=== PATIENT | male | born 1930 | race Caucasian/White ===

== ENCOUNTER 2017-06-30 10:02 | Inpatient (IN) | payer OTHER ==
[~2017-06-30] VITALS: Ht 180.3 cm; Wt 91.3 kg
[~2017-06-30 10:02] MED LIST: AMLODIPINE BESYL5 MG PO; CATAPRES0.3 MG PO; DOXAZOSIN MESYLA8 MG PO; FINASTERIDE5 M1 PO; FINASTERIDE5 MG PO; HYDROCHLOROTHIA25 MG PO; LIPITOR40 MG PO; LO-DOSE ASPIRIN81 M1 PO; LOSARTAN POTASS50 MG PO; LOTREL 5/201 CAPSULE PO; METFORMIN HCL1000 MG PO; NEURONTIN300 MG PO; NOVOLOG100 UNIT/2 SQ; SENOKOT,SENN1 TABLET PO
[2017-06-30 10:34] LABS: HEMATOCRIT 36.1 % (38.0-50.0); HEMOGLOBIN 12.8 G/DL (12.5-16.6); MCH 32.9 PG (29.0-34.0); MCHC 35.5 G/DL (30.0-36.0); MCV 92.8 FL (86-99); PLATELET COUNT 208 K/uL (156-360); RBC DIS.WIDTH-CV 12.8 % (11.8-14.6); RBC DIS.WIDTH-SD 43.8 % (39-53); RED BLOOD COUNT 3.89 M/uL (4.00-5.50); WHITE BLOOD COUNT 9.2 K/uL (4.1-10.2)
[2017-06-30 10:45] LABS: CHLORIDE 98 mEq/L (99-109); POTASSIUM 4.7 mEq/L (3.7-5.4); SODIUM 131 mEq/L (136-147)
[2017-06-30 10:47] LABS: GLUCOSE 289 mg/dL (70-99)
[2017-06-30 10:51] LABS: CREATININE 1.2 mg/dL (0.6-1.3); GFR ESTIMATE (CALCULATED) > 59 mL/min/ (58.99-99999)
[2017-06-30 10:52] LABS: UREA NITROGEN (BUN) 14 mg/dL (9-23)
[2017-06-30 10:55] LABS: TROP-I INTERPRETATION NEGATIVE; TROPONIN-I 0.05 ng/mL (0.0-0.30)
[2017-06-30] MEDS ORDERED: K-DUR20 MEQ PO (13:14)
[2017-06-30] MEDS ORDERED: KETOCONAZOLE60 GM TP (13:14)
[2017-06-30] MEDS ORDERED: GABAPENTIN300 MG PO (13:14)
[2017-06-30 15:11] VITALS: BP 143/67
[2017-06-30 15:18] LABS: TROP-I INTERPRETATION POSITIVE
[2017-06-30 15:52] LABS: INTER. NORMALIZED RATIO 1.1
[2017-06-30 18:15] VITALS: BP 137/62
[2017-06-30 21:11] LABS: TROP-I INTERPRETATION POSITIVE; TROPONIN-I 25.07 ng/mL (0.0-0.30)
[2017-06-30 23:16] VITALS: BP 107/55
[2017-07-01] VITALS (8 sets, daily range): BP systolic 81–135; BP diastolic 45–88
[2017-07-01 05:01] LABS: HEMATOCRIT 32.1 % (38.0-50.0); HEMOGLOBIN 11.3 G/DL (12.5-16.6); MCH 32.6 PG (29.0-34.0); MCHC 35.2 G/DL (30.0-36.0); MCV 92.5 FL (86-99); PLATELET COUNT 179 K/uL (156-360); RBC DIS.WIDTH-SD 43.9 % (39-53); RED BLOOD COUNT 3.47 M/uL (4.00-5.50)
[2017-07-01 05:24] LABS: CHLORIDE 102 mEq/L (99-109); POTASSIUM 5.3 mEq/L (3.7-5.4); SODIUM 134 mEq/L (136-147)
[2017-07-01 05:25] LABS: TROP-I INTERPRETATION POSITIVE
[2017-07-01 05:27] LABS: ALBUMIN 3.8 g/dL (3.2-4.8)
[2017-07-01 05:35] LABS: AST (GOT) 214 IU/L (2-34)
[2017-07-01 05:36] LABS: ALT (GPT) 34 IU/L (3-49)
[2017-07-01 05:44] LABS: TROPONIN-I 74.44 ng/mL (0.0-0.30)
[2017-07-01 05:46] LABS: ALKALINE PHOSPHATASE 109 IU/L (3-129); CREATININE 1.2 mg/dL (0.6-1.3); GFR ESTIMATE (CALCULATED) > 59 mL/min/ (58.99-99999); GLUCOSE 199 mg/dL (70-99); TOTAL BILIRUBIN 1.5 mg/dL (0.0-1.0); TOTAL PROTEIN 5.9 g/dL (6.4-8.3); UREA NITROGEN (BUN) 19 mg/dL (9-23)
[2017-07-01 09:11] LABS: HEMOGLOBIN A1c (GLYCOHEMOGLOB) 7.1 % (Below 5.7)
[2017-07-01 09:31] LABS: HDL CHOLESTEROL 52 MG/DL (Desirable>=40); LDL CHOLESTEROL 64 mg/dL (Desirable<100); NON-HDL CHOLESTEROL 75 mg/dL (Desirable<160); TOTAL CHOLESTEROL 127 mg/dL (Desirable<200); TRIGLYCERIDES 55 MG/DL (Normal: <150)
== END 2017-07-01 13:23 | disposition short-term general hospital (02) | DRG 270 ==
LOC: EME 10:02 → EDOF 13:41 → ENRESERV 13:42 → EDOF 14:04 → 5WEST 14:38 → 4WEST 15:30 → 5WEST 16:34 → ENRESERV 16:39 → CANRESERV 07-01 02:40 → 4WEST 07-01 07:23 → ENRESERV 07-01 07:23 → 4WEST 07-01 07:35
PROVIDERS: Internal Medicine; Nurse Practitioner Adult Health
DX: I21.4 Non-ST elevation (NSTEMI) myocardial infarction (principal); I50.21 Acute systolic (congestive) heart failure; E87.1 Hypo-osmolality and hyponatremia; I25.119 Atherosclerotic heart disease of native coronary artery with unspecified angina pectoris; E11.40 Type 2 diabetes mellitus with diabetic neuropathy, unspecified; E78.5 Hyperlipidemia, unspecified; I11.0 Hypertensive heart disease with heart failure; I44.0 Atrioventricular block, first degree; N40.0 Benign prostatic hyperplasia without lower urinary tract symptoms; Z87.891 Personal history of nicotine dependence; Z79.82 Long term (current) use of aspirin; Z79.84 Long term (current) use of oral hypoglycemic drugs; Z82.49 Family history of ischemic heart disease and other diseases of the circulatory system
CPT/HCPCS: 71046; 80048; 80053; 80061; 82948; 83036; 84484; 85027; 85347; 85610; 85730; 86850; 86900; 86901; 87641; 93005; 99281; 99285; C1725; C1769; C1887; C1894; J0461; J1644; J1815; J2250; J2405; J3010; J3246

== ENCOUNTER 2017-07-11 18:54 | Inpatient (IN) | payer OTHER ==
[~2017-07-11] VITALS: Ht 180.3 cm; Wt 87.9 kg
[~2017-07-11 18:54] MED LIST changes: +GABAPENTIN300 MG PO; +K-DUR20 MEQ PO; +KETOCONAZOLE60 GM TP
[2017-07-11 19:24] LABS: HEMATOCRIT 29.5 % (38.0-50.0); HEMOGLOBIN 10.1 G/DL (12.5-16.6); MCH 32.2 PG (29.0-34.0); MCHC 34.2 G/DL (30.0-36.0); MCV 93.9 FL (86-99); RBC DIS.WIDTH-CV 12.8 % (11.8-14.6); RBC DIS.WIDTH-SD 43.8 % (39-53); RED BLOOD COUNT 3.14 M/uL (4.00-5.50); WHITE BLOOD COUNT 13.9 K/uL (4.1-10.2)
[2017-07-11 19:26] LABS: PLATELET COUNT 307 K/uL (156-360)
[2017-07-11 19:44] LABS: CHLORIDE 96 mEq/L (99-109); POTASSIUM 5.8 mEq/L (3.7-5.4); SODIUM 127 mEq/L (136-147)
[2017-07-11 19:45] LABS: GLUCOSE 357 mg/dL (70-99); TROP-I INTERPRETATION POSITIVE
[2017-07-11 19:49] LABS: CREATININE 1.9 mg/dL (0.6-1.3); GFR ESTIMATE (CALCULATED) 36 mL/min/ (58.99-99999)
[2017-07-11 19:50] LABS: UREA NITROGEN (BUN) 41 mg/dL (9-23)
[2017-07-11 19:57] LABS: TROPONIN-I 0.68 ng/mL (0.0-0.30)
[2017-07-11] MEDS ORDERED: FUROSEMIDE80 MG PO (23:02)
[2017-07-11] MEDS ORDERED: ELIQUIS5 MG PO (23:32)
[2017-07-12 01:50] LABS: POTASSIUM 5.6 mEq/L (3.7-5.4)
[2017-07-12 02:02] LABS: TROP-I INTERPRETATION POSITIVE
[2017-07-12 02:03] LABS: TROPONIN-I 0.64 ng/mL (0.0-0.30)
[2017-07-12 03:10] VITALS: BP 148/68
[2017-07-12 05:53] LABS: HEMATOCRIT 26.4 % (38.0-50.0); HEMOGLOBIN 8.8 G/DL (12.5-16.6); MCH 31.1 PG (29.0-34.0); MCHC 33.3 G/DL (30.0-36.0); MCV 93.3 FL (86-99); PLATELET COUNT 276 K/uL (156-360); RBC DIS.WIDTH-CV 12.7 % (11.8-14.6); RBC DIS.WIDTH-SD 43.5 % (39-53); RED BLOOD COUNT 2.83 M/uL (4.00-5.50); WHITE BLOOD COUNT 12.4 K/uL (4.1-10.2)
[2017-07-12 06:11] LABS: CHLORIDE 96 MEQ/L (99-109); CREATININE 1.8 MG/DL (0.6-1.3); GFR ESTIMATE (CALCULATED) 38 mL/min/ (58.99-99999); GLUCOSE 222 mg/dL (70-99); POTASSIUM 5.4 MEQ/L (3.7-5.4); SODIUM 129 MEQ/L (136-147); UREA NITROGEN (BUN) 39 mg/dL (9-23)
[2017-07-12 07:48] VITALS: BP 121/58
[2017-07-12 09:02] LABS: TROP-I INTERPRETATION INDETERMINATE; TROPONIN-I 0.59 ng/mL (0.0-0.30)
[2017-07-12 11:19] VITALS: BP 121/57
[2017-07-12 16:42] LABS: APPEARANCE CLOUDY ((CLEAR)); BILIRUBIN NEGATIVE; BLOOD MODERATE; COLOR YELLOW ((YELLOW)); GLUCOSE (STRIP) NEGATIVE; KETONES NEGATIVE; LEUKOCYTES LARGE; NITRITE POSITIVE; PROTEIN (STRIP) 30; SPECIFIC GRAVITY 1.011 (1.000-1.030); UROBILINOGEN 0.2 MG/DL (0.2-1.0)
[2017-07-12 16:59] LABS: BACTERIA RARE /HPF; EPITHELIAL CELLS NONE SEEN /HPF; HYALINE CASTS 0-5 /LPF; MUCUS NONE SEEN /LPF; WHITE BLOOD CELLS TNTC /HPF (0-5)
[2017-07-12 17:49] VITALS: BP 161/77
[2017-07-12 21:00] VITALS: BP 125/69
[2017-07-13 03:00] VITALS: BP 124/66
[2017-07-13 06:13] LABS: BASOPHIL (%) 0.2 % (0-1); EOSINOPHIL (%) 0.8 % (0-5); EOSINOPHIL COUNT 0.1 K/uL (0-0.3); HEMATOCRIT 25.1 % (38.0-50.0); HEMOGLOBIN 8.6 G/DL (12.5-16.6); IMMATURE GRANULOCYTE (%) 0.6 % (0.0-0.7); LYMPHOCYTE (%) 12.5 % (15-42); LYMPHOCYTE COUNT 1.2 K/uL (1.0-2.8); MCH 31.5 PG (29.0-34.0); MCHC 34.3 G/DL (30.0-36.0); MCV 91.9 FL (86-99); MONOCYTE (%) 12.2 % (3-12); MONOCYTE COUNT 1.2 K/uL (0-0.8); NEUTROPHIL (%) 73.7 % (45-76); NEUTROPHIL COUNT 7.3 K/uL (1.8-6.4); PLATELET COUNT 286 K/uL (156-360); RBC DIS.WIDTH-CV 12.8 % (11.8-14.6); RBC DIS.WIDTH-SD 42.7 % (39-53); RED BLOOD COUNT 2.73 M/uL (4.00-5.50); WHITE BLOOD COUNT 9.9 K/uL (4.1-10.2)
[2017-07-13 06:36] LABS: CHLORIDE 94 MEQ/L (99-109); CREATININE 1.5 MG/DL (0.6-1.3); GFR ESTIMATE (CALCULATED) 47 mL/min/ (58.99-99999); GLUCOSE 170 mg/dL (70-99); MAGNESIUM 1.6 mg/dl (1.3-2.7); SODIUM 130 MEQ/L (136-147); UREA NITROGEN (BUN) 39 mg/dL (9-23)
[2017-07-13 06:38] LABS: TROP-I INTERPRETATION INDETERMINATE; TROPONIN-I 0.48 ng/mL (0.0-0.30)
[2017-07-13 06:38] LABS: POTASSIUM 4.2 MEQ/L (3.7-5.4)
[2017-07-13 07:38] VITALS: BP 123/62
[2017-07-13 12:30] VITALS: BP 109/60
[2017-07-13 17:48] VITALS: BP 119/69
[2017-07-13 19:32] VITALS: BP 122/58
[2017-07-13 23:51] VITALS: BP 113/57
[2017-07-14 03:30] VITALS: BP 119/65
[2017-07-14 05:28] LABS: BASOPHIL (%) 0.3 % (0-1); EOSINOPHIL (%) 1.3 % (0-5); EOSINOPHIL COUNT 0.1 K/uL (0-0.3); HEMATOCRIT 25.6 % (38.0-50.0); HEMOGLOBIN 8.7 G/DL (12.5-16.6); IMMATURE GRANULOCYTE (%) 0.4 % (0.0-0.7); LYMPHOCYTE (%) 17.8 % (15-42); LYMPHOCYTE COUNT 1.4 K/uL (1.0-2.8); MCV 91.1 FL (86-99); MONOCYTE (%) 15.1 % (3-12); MONOCYTE COUNT 1.2 K/uL (0-0.8); NEUTROPHIL (%) 65.1 % (45-76); NEUTROPHIL COUNT 5.1 K/uL (1.8-6.4); PLATELET COUNT 304 K/uL (156-360); RBC DIS.WIDTH-CV 12.7 % (11.8-14.6); RBC DIS.WIDTH-SD 42.5 % (39-53); RED BLOOD COUNT 2.81 M/uL (4.00-5.50); WHITE BLOOD COUNT 7.9 K/uL (4.1-10.2)
[2017-07-14 05:51] LABS: ALBUMIN 2.7 G/DL (3.2-4.8); CHLORIDE 96 MEQ/L (99-109); CREATININE 1.4 MG/DL (0.6-1.3); GFR ESTIMATE (CALCULATED) 51 mL/min/ (58.99-99999); GLUCOSE 153 mg/dL (70-99); IRON 20 MCG/DL (35-150); PHOSPHORUS 4.5 mg/dL (2.5-4.9); POTASSIUM 3.8 MEQ/L (3.7-5.4); SODIUM 133 MEQ/L (136-147); TRANSFERRIN (TIBC) 131.8 mg/dL (215-380); TRANSFERRIN SATUR. 15 % (20-55); UREA NITROGEN (BUN) 38 mg/dL (9-23)
[2017-07-14 07:20] VITALS: BP 129/60
[2017-07-14 11:30] VITALS: BP 113/56
[2017-07-14] MEDS ORDERED: AMLODIPINE BESYL5 MG PO (12:32)
[2017-07-14] MEDS ORDERED: LIPITOR40 MG PO (12:32)
[2017-07-14] MEDS ORDERED: ELIQUIS2.5 MG PO (12:32)
[2017-07-14] MEDS ORDERED: APRESOLINE25 MG PO (12:32)
[2017-07-14] MEDS ORDERED: GABAPENTIN300 MG PO (12:32)
[2017-07-14] MEDS ORDERED: LASIX40 MG PO (12:32)
[2017-07-14] MEDS ORDERED: K-DUR20 MEQ PO (12:32)
[2017-07-14] MEDS ORDERED: CIPRO500 MG PO (13:20)
== END 2017-07-14 15:35 | disposition home health service (06) | DRG 291 ==
LOC: EME 18:54 → EDOF 07-12 00:01 → ENRESERV 07-12 00:04 → 4EAST 07-12 03:09
PROVIDERS: Emergency Medicine Emergency Medical Services; Hospitalist; Internal Medicine Cardiovascular Disease; Internal Medicine Nephrology; Student in an Organized Health Care Education/Training Program
DX: I13.0 Hypertensive heart and chronic kidney disease with heart failure and stage 1 through stage 4 chronic kidney disease, or unspecified chronic kidney disease (principal); I50.23 Acute on chronic systolic (congestive) heart failure; N17.9 Acute kidney failure, unspecified; N39.0 Urinary tract infection, site not specified; E87.1 Hypo-osmolality and hyponatremia; N18.3 Chronic kidney disease, stage 3 (moderate); E11.22 Type 2 diabetes mellitus with diabetic chronic kidney disease; E11.65 Type 2 diabetes mellitus with hyperglycemia; E78.5 Hyperlipidemia, unspecified; I25.10 Atherosclerotic heart disease of native coronary artery without angina pectoris; I25.5 Ischemic cardiomyopathy; I42.0 Dilated cardiomyopathy; N28.1 Cyst of kidney, acquired; N40.0 Benign prostatic hyperplasia without lower urinary tract symptoms; R09.02 Hypoxemia; D64.9 Anemia, unspecified; Z60.2 Problems related to living alone; I44.0 Atrioventricular block, first degree; Z79.01 Long term (current) use of anticoagulants; Z79.84 Long term (current) use of oral hypoglycemic drugs; Z79.82 Long term (current) use of aspirin; I25.2 Old myocardial infarction; Z95.5 Presence of coronary angioplasty implant and graft; Z90.49 Acquired absence of other specified parts of digestive tract; Z83.3 Family history of diabetes mellitus
CPT/HCPCS: 71046; 76770; 78582; 80048; 80069; 81003; 82436; 82948; 83540; 83735; 83880; 84132 91; 84133; 84300; 84443; 84466; 84484; 85025; 85027; 85379; 87086; 93005; 94799; 99281; 99285; A9540; A9567; J0696; J0881; J1815; J1940

== ENCOUNTER 2017-07-30 12:07 | Emergency (ER) | payer OTHER ==
[~2017-07-30] VITALS: Ht 180.3 cm; Wt 85.0 kg
[~2017-07-30 12:07] MED LIST changes: +APRESOLINE25 MG PO; +CIPRO500 MG PO; +ELIQUIS2.5 MG PO; +ELIQUIS5 MG PO; +FUROSEMIDE80 MG PO; +LASIX40 MG PO
[2017-07-30 12:57] LABS: HEMATOCRIT 32.9 % (38.0-50.0); MCH 31.1 PG (29.0-34.0); MCHC 33.7 G/DL (30.0-36.0); MCV 92.2 FL (86-99); PLATELET COUNT 227 K/uL (156-360); RBC DIS.WIDTH-CV 13.3 % (11.8-14.6); RBC DIS.WIDTH-SD 45.4 % (39-53); WHITE BLOOD COUNT 7.8 K/uL (4.1-10.2)
[2017-07-30 12:58] LABS: HEMOGLOBIN 11.1 G/DL (12.5-16.6); RED BLOOD COUNT 3.57 M/uL (4.00-5.50)
[2017-07-30 13:03] LABS: CHLORIDE 99 mEq/L (99-109); POTASSIUM 4.6 mEq/L (3.7-5.4); SODIUM 136 mEq/L (136-147)
[2017-07-30 13:05] LABS: GLUCOSE 157 mg/dL (70-99); TOTAL PROTEIN 7.2 g/dL (6.4-8.3)
[2017-07-30 13:07] LABS: TOTAL BILIRUBIN 1.2 mg/dL (0.0-1.0)
[2017-07-30 13:09] LABS: ALKALINE PHOSPHATASE 118 IU/L (3-129); CREATININE 1.4 mg/dL (0.6-1.3); GFR ESTIMATE (CALCULATED) 51 mL/min/ (58.99-99999)
[2017-07-30 13:10] LABS: UREA NITROGEN (BUN) 15 mg/dL (9-23)
[2017-07-30 13:11] LABS: AST (GOT) 19 IU/L (2-34)
[2017-07-30 13:12] LABS: ALT (GPT) 13 IU/L (3-49)
[2017-07-30 14:10] VITALS: BP 110/68
== END 2017-07-30 14:18 | disposition home or self-care (01) ==
LOC: EME 12:07
DX: K59.00 Constipation, unspecified (principal); E11.9 Type 2 diabetes mellitus without complications; E78.5 Hyperlipidemia, unspecified; I10 Essential (primary) hypertension; I25.2 Old myocardial infarction; Z95.5 Presence of coronary angioplasty implant and graft; Z90.49 Acquired absence of other specified parts of digestive tract; Z79.01 Long term (current) use of anticoagulants; Z79.84 Long term (current) use of oral hypoglycemic drugs; Z79.82 Long term (current) use of aspirin
CPT/HCPCS: 80053; 81003; 85027; 99281; 99283